=== PATIENT | female | born 1935 | race Asian ===

== ENCOUNTER 2019-12-16 18:56 | Inpatient (IN) | payer OTHER, MEDICAID, SELFPAY ==
[~2019-12-16] VITALS: Ht 160 cm; Wt 53.3 kg
[2019-12-16 19:02] VITALS: BP_SYST 130
[2019-12-16 20:07] LABS: HEMOGLOBIN 11.3 g/dL (12.0-16.0); MEAN CORPUSCULAR HEMOGLOBIN 32 pg (27-31); MEAN CORPUSCULAR HGB CONC 34 % (32-36); MEAN CORPUSCULAR VOLUME 93 fL (79.0-98.0); RED BLOOD CELL COUNT(AUTO) 3.54 MIL/uL (4.2-6.2); RED CELL DISTRIBUTION WIDTH 12.9 % (9.0-15.0)
[2019-12-16 20:26] LABS: ANION GAP 20 (5-15); CALCIUM 7.7 mg/dL (8.4-11.0); CHLORIDE 87 mmol/L (98-107); CREATININE 2.28 mg/dL (0.55-1.30); GLUCOSE 157 mg/dL (70-99); POTASSIUM 3.1 mmol/L (3.5-5.1); SODIUM SERUM 122 mmol/L (136-145); UREA NITROGEN, BLOOD 64 mg/dL (8-21)
[2019-12-16 20:30] LABS: INR 1.2 (0.8-1.2); PROTHROMBIN TIME 11.9 SECS (9.5-12.5)
[2019-12-16 20:39] LABS: ALBUMIN 2.5 g/dL (3.4-4.8); ASPARTATE AMINOTRANSFERASE 735 U/L (10-37); LACTATE DEHYDROGENASE 585 U/L (81-234); PLATELET COUNT (AUTO) 77 K/uL (130-430); TOTAL BILIRUBIN 2.9 mg/dL (0.0-1.0)
[2019-12-16] MEDS ORDERED: NS 500 ML IV ONE ×2 (20:45→21:45)
[2019-12-16] MEDS ORDERED: cefTRIAXone 1 GM IVPB PREMIX 50 ML IV ONE (20:45)
[2019-12-16] MEDS ORDERED: AZITHROMYCIN 500 MG in NS 250 ML IV ONE (20:45)
[2019-12-16 20:47] LABS: ALANINE AMINOTRANSFERASE 479 U/L (12-78)
[2019-12-16] MEDS ORDERED: AZITHROMYCIN 500 MG/VIAL (ZITHROMAX) IV ONE (21:09)
[2019-12-16 21:16] LABS: C-REACTIVE PROTEIN QUANT 39.6 mg/dL (0-0.5)
[2019-12-16 21:27] LABS: BAND % (MANUAL) 15 % (0-6); LYMPHOCYTES % (MANUAL) 7 % (20-46); MONOCYTES % (MANUAL) 30 % (0-11)
[2019-12-16 21:28] LABS: BASOPHILS % (MANUAL) 0 % (0-2); EOSINOPHILS % (MANUAL) 0 % (0-7)
[2019-12-16] MEDS ORDERED: PIPERACILLIN/TAZOBACTAM 2.25 GM in NS 50 ML IV ONE (21:45)
[2019-12-16 21:49] LABS: BILIRUBIN,URINE 1+ (NEGATIVE); BLOOD, URINE 2+ (NEGATIVE); CLARITY/URINE CLOUDY (CLEAR); GLUCOSE,URINE NEGATIVE (NEGATIVE); KETONES,URINE NEGATIVE (NEGATIVE); LEUKOCYTE ESTERASE ,URINE NEGATIVE (NEGATIVE); NITRITE, URINE NEGATIVE (NEGATIVE); PH,URINE 5.5 (5.0-8.0); PROTEIN URINE 1+ (NEGATIVE)
[2019-12-16 21:50] LABS: COLOR,URINE AMBER (YELLOW)
[2019-12-16] MEDS ORDERED: PIPERACILLIN/TAZOBACTAM 2.25 GM VIAL IV ONE (22:09)
[2019-12-16 22:21] LABS: ANION GAP 13 (5-15); CALCIUM 7.7 mg/dL (8.4-11.0); CHLORIDE 93 mmol/L (98-107); CREATININE 2.22 mg/dL (0.55-1.30); GLUCOSE 135 mg/dL (70-99); SODIUM SERUM 126 mmol/L (136-145); UREA NITROGEN, BLOOD 63 mg/dL (8-21)
[2019-12-16 22:26] LABS: ALANINE AMINOTRANSFERASE 415 U/L (12-78); ALBUMIN 1.9 g/dL (3.4-4.8); ASPARTATE AMINOTRANSFERASE 651 U/L (10-37); TOTAL BILIRUBIN 2.5 mg/dL (0.0-1.0)
[2019-12-16 22:35] VITALS: BP_SYST 111
[2019-12-16 22:45] VITALS: BP_SYST 111
[2019-12-16 23:00] VITALS: BP_SYST 115
[2019-12-16] MEDS ORDERED: POTASSIUM CHLORIDE 20 MEQ TAB.PRT.SR PO ONE (23:00)
[2019-12-16] MEDS ORDERED: IPRATROPIUM/ALBUTEROL SULFATE 3 ML AMPUL.NEB (DUONEB) INH PRN (23:00)
[2019-12-16] MEDS ORDERED: DIPHENHYDRAMINE INJ 50 MG/ML VIAL IVP PRN (23:00)
[2019-12-16] MEDS ORDERED: PANTOPRAZOLE SODIUM 40 MG/VIAL (PROTONIX) IVP ONE (23:00)
[2019-12-16] MEDS ORDERED: POTASSIUM CHLORIDE 20 MEQ/PKT PACKET PO ONE (23:15)
[2019-12-16 23:19] LABS: BACTERIA,URINE MODERATE /HPF (None Seen); URINE AMORPHOUS URATE 3+ /HPF (None Seen)
[2019-12-16 23:20] VITALS: BP_SYST 115
[2019-12-16 23:20] LABS: MUCUS,URINE 1+ /LPF (None Seen)
[2019-12-16] MEDS ORDERED: OSELTAMIVIR PHOSPHATE 6 MG/1 ML, 60 ML SUSP ONE (23:57)
[2019-12-17] VITALS (11 sets, daily range): BP systolic 105–156
[2019-12-17] MEDS: OSELTAMIVIR PHOSPHATE 6 MG/1 ML, 60 ML SUSP PO SCH ×2 (00:02→08:58)
[2019-12-17] MEDS: NACL 0.9% 1,000 ML IV SCH ×2 (00:02→04:23)
[2019-12-17] MEDS ORDERED: IPRATROPIUM/ALBUTEROL SULFATE 3 ML AMPUL.NEB (DUONEB) INH SCH (01:00)
[2019-12-17] MEDS: ACETAMINOPHEN 325 MG TABLET PO PRN ×2 (05:20→09:00)
[2019-12-17 05:38] LABS: BASOPHILS % (AUTO) 0.1 % (0.0-2.0); HEMOGLOBIN 10.9 g/dL (12.0-16.0); LYMPHOCYTES # (AUTO) 1.5 K/uL (1.0-5.5); NEUTROPHILS # (AUTO) 1.2 K/uL (1.8-7.7); WHITE BLOOD COUNT (AUTO) 2.8 K/uL (4.8-10.8)
[2019-12-17] MEDS ORDERED: SODIUM BICARBONATE 8.4% JECT 50 MEQ/50 ML SYRINGE IVP ONE ×2 (05:45→13:12)
[2019-12-17 05:49] LABS: EOSINOPHILS # (AUTO) 0.1 K/uL (0.0-0.4); EOSINOPHILS % (AUTO) 2.3 % (0.0-4.0); HEMATOCRIT 33.8 % (36-48); LYMPHOCYTES % (AUTO) 54.8 % (20.5-51.5); MEAN CORPUSCULAR HEMOGLOBIN 32 pg (27-31); MEAN CORPUSCULAR HGB CONC 32 % (32-36); MEAN CORPUSCULAR VOLUME 97 fL (79.0-98.0); MONOCYTES % (AUTO) 0.8 % (1.7-9.3); RED BLOOD CELL COUNT(AUTO) 3.47 MIL/uL (4.2-6.2); RED CELL DISTRIBUTION WIDTH 13.7 % (9.0-15.0)
[2019-12-17] MEDS ORDERED: SODIUM BICARBONATE 8.4% VIAL 50 MEQ/50 ML VIAL ONE (05:55)
[2019-12-17] MEDS ORDERED: PIPERACILLIN/TAZO 2.25G/DEX-IS 50 ML IV SCH (06:00)
[2019-12-17] MEDS ORDERED: PIPERACILLIN/TAZOBACTAM 2.25 GM VIAL IV ONE (06:10)
[2019-12-17 07:25] LABS: ALBUMIN 1.7 g/dL (3.4-4.8)
[2019-12-17 08:28] LABS: ALANINE AMINOTRANSFERASE 437 U/L (12-78); ANION GAP 22 (5-15); ASPARTATE AMINOTRANSFERASE 859 U/L (10-37); CALCIUM 7.4 mg/dL (8.4-11.0); CHLORIDE 100 mmol/L (98-107); CREATININE 2.39 mg/dL (0.55-1.30); GLUCOSE 68 mg/dL (70-99); POTASSIUM 3.4 mmol/L (3.5-5.1); SODIUM SERUM 137 mmol/L (136-145); THYROID STIMULATING HORMONE 0.34 uIu/mL (0.36-3.74); TOTAL BILIRUBIN 2.6 mg/dL (0.0-1.0); UREA NITROGEN, BLOOD 59 mg/dL (8-21)
[2019-12-17] MEDS ORDERED: PANTOPRAZOLE SODIUM 40 MG/VIAL (PROTONIX) IVP SCH (09:00)
[2019-12-17] MEDS ORDERED: POTASSIUM CHLORIDE 20 MEQ TAB.PRT.SR PO SCH (09:00)
[2019-12-17 09:52] LABS: PLATELET COUNT (AUTO) 36 K/uL (130-430)
[2019-12-17] MEDS ORDERED: NOREPINEPHRINE 4 MG/4 ML VIAL IV ONE (10:00)
[2019-12-17 10:42] LABS: INR 1.5 (0.8-1.2)
[2019-12-17 12:51] LABS: TOTAL IRON BIND. CAPACITY 281 ug/dL (250-450)
[2019-12-17] MEDS ORDERED: ALBUTEROL MDI INHALATION 8 GM INH INH PRN (13:00)
[2019-12-17] MEDS ORDERED: EPINEPHrine JECT 0.1 MG/ML SYR IVP ONE (13:12)
[2019-12-17] MEDS ORDERED: CALCIUM CHLORIDE 1 GM/10 ML DISP.SYRIN (14 mEq Ca++/SYR) IVP ONE (13:12)
[2019-12-17] MEDS ORDERED: NS 1000 ML IV.SOLN IV ONE (13:12)
[2019-12-17] MEDS ORDERED: AZITHROMYCIN 500 MG in NS 250 ML IV SCH (21:00)
[2019-12-18 07:06] LABS: HEPATITIS A AB, IgM Negative (Negative); HEPATITIS B CORE AB, IgM Negative (Negative); HEPATITIS B SURFACE AG Negative (Negative)
== END 2019-12-17 11:00 | disposition expired | DRG 871 ==
LOC: SED 18:56 → EEVIPCON 18:56 → SIC 21:43
PROVIDERS: ADMIT Internal Medicine; ATTEND Internal Medicine
PROC: 0BH17EZ Insertion of Endotracheal Airway into Trachea, Via Natural or Artificial Opening (ICD-10-PCS; principal; 2019-12-16)
PROC: 06HY33Z Insertion of Infusion Device into Lower Vein, Percutaneous Approach (ICD-10-PCS; 2019-12-16)
PROC: 5A12012 Performance of Cardiac Output, Single, Manual (ICD-10-PCS; 2019-12-16)
PROC: 5A1935Z Respiratory Ventilation, Less than 24 Consecutive Hours (ICD-10-PCS; 2019-12-16)
DX: A41.9 Sepsis, unspecified organism (principal); J96.00 Acute respiratory failure, unspecified whether with hypoxia or hypercapnia; E43 Unspecified severe protein-calorie malnutrition; N17.0 Acute kidney failure with tubular necrosis; G93.41 Metabolic encephalopathy; J12.9 Viral pneumonia, unspecified; E87.1 Hypo-osmolality and hyponatremia; B17.9 Acute viral hepatitis, unspecified; I46.9 Cardiac arrest, cause unspecified; Z66 Do not resuscitate; E86.0 Dehydration; D69.6 Thrombocytopenia, unspecified; Z60.2 Problems related to living alone; Z20.828 Contact with and (suspected) exposure to other viral communicable diseases; J11.1 Influenza due to unidentified influenza virus with other respiratory manifestations; E87.6 Hypokalemia; D64.9 Anemia, unspecified; Z68.20 Body mass index [BMI] 20.0-20.9, adult
CPT/HCPCS: 36415; 36600; 71045; 80053; 80074; 81000-TC; 82550-TC; 82728; 82803-TC; 83540-TC; 83550-TC; 83605; 83615-TC; 83735-TC; 83880; 84100-TC; 84443-TC; 84484; 85007; 85025; 85027; 85379; 85384-TC; 85610-TC; 85730-TC; 86140; 86710; 86713; 87040-TC; 87081; 87086; 87186-TC; 93005; 94002; 96365; 96367; 96368; 99291; C1887; C9113; G9035; J0171; J0456; J0696; J2543; J7030; J7040; J7050; J7060; U0002